=== PATIENT | female | born 2000 | race Two or more races ===

== ENCOUNTER 2020-10-12 16:45 | Outpatient (REF) | payer MEDICAID, SELFPAY | END 2020-10-12 16:46 | disposition home or self-care (01) | LOC: HO.LAB 16:45 | PROVIDERS: Visit Provider Internal Medicine | DX: Z20.828 Contact with and (suspected) exposure to other viral communicable diseases (principal) | CPT/HCPCS: C9803; U0003 ==

== ENCOUNTER 2020-10-22 11:48 | Outpatient (REF) | payer MEDICAID, SELFPAY | END 2020-10-22 11:49 | disposition home or self-care (01) | LOC: HO.LAB 11:48 | PROVIDERS: PCP Pediatrics; Visit Provider Internal Medicine | DX: Z20.828 Contact with and (suspected) exposure to other viral communicable diseases (principal) | CPT/HCPCS: C9803; U0003 ==

== ENCOUNTER 2020-11-23 09:32 | Outpatient (REF) | payer MEDICAID, SELFPAY ==
[2020-11-23 11:00] LABS: HBS Num1 0.11 mIU/mL (0-7.99); ~Hepatitis B Surface Antibody NONREACTIVE (Nonreactive)
== END 2020-11-23 09:33 | disposition home or self-care (01) ==
LOC: HO.LAB 09:32
PROVIDERS: PCP Internal Medicine; Visit Provider Internal Medicine
DX: Z11.59 Encounter for screening for other viral diseases (principal)
CPT/HCPCS: 36415; 86706

== ENCOUNTER 2021-03-14 11:36 | Outpatient (REF) | payer MEDICAID, SELFPAY ==
--- NOTE | ~2021-03-14 | XR_ITS ---
EXAMINATION: XR CERVICAL SPINE XR THORACIC SPINE XR LUMBAR SPINE CLINICAL INFORMATION: Scoliosis. COMPARISON: None. TECHNIQUE: AP, lateral, open-mouth, bilateral oblique views of the cervical spine. AP, lateral, and swimmer's views of the thoracic spine. AP, lateral, coned down, and bilateral oblique views of the lumbar spine. FINDINGS: Cervical Spine: Normal vertebral body alignment. The cervical lordosis is maintained. Normal atlantoaxial alignment. No acute fracture or subluxation. No loss of vertebral body or intervertebral disc height. No lytic or blastic osseous lesion. Unremarkable prevertebral soft tissues. Thoracic Spine: Dextrocurvature of the thoracic spine centered at the T5 vertebral body and measuring up to 26 degrees. The thoracic kyphosis is maintained. No acute fracture or subluxation. No loss of vertebral body or intervertebral disc height. No lytic or blastic osseous lesion. The visualized lungs are clear. Lumbar Spine: The lumbar lordosis is maintained. No acute fracture or subluxation. No loss of vertebral body or intervertebral disc height. No lytic or blastic osseous lesion. No abnormal soft tissue calcification. XR/XR cervical spine 4V IMPRESSION: CERVICAL SPINE: Unremarkable examination. THORACIC SPINE: Dextrocurvature of the thoracic spine centered at the T5 vertebral body measuring up to 26 degrees. LUMBAR SPINE: Unremarkable examination.
--- NOTE | ~2021-03-14 | XR_ITS ---
EXAMINATION: XR CERVICAL SPINE XR THORACIC SPINE XR LUMBAR SPINE CLINICAL INFORMATION: Scoliosis. COMPARISON: None. TECHNIQUE: AP, lateral, open-mouth, bilateral oblique views of the cervical spine. AP, lateral, and swimmer's views of the thoracic spine. AP, lateral, coned down, and bilateral oblique views of the lumbar spine. FINDINGS: Cervical Spine: Normal vertebral body alignment. The cervical lordosis is maintained. Normal atlantoaxial alignment. No acute fracture or subluxation. No loss of vertebral body or intervertebral disc height. No lytic or blastic osseous lesion. Unremarkable prevertebral soft tissues. Thoracic Spine: Dextrocurvature of the thoracic spine centered at the T5 vertebral body and measuring up to 26 degrees. The thoracic kyphosis is maintained. No acute fracture or subluxation. No loss of vertebral body or intervertebral disc height. No lytic or blastic osseous lesion. The visualized lungs are clear. Lumbar Spine: The lumbar lordosis is maintained. No acute fracture or subluxation. No loss of vertebral body or intervertebral disc height. No lytic or blastic osseous lesion. No abnormal soft tissue calcification. XR/XR thoracic spine 3V IMPRESSION: CERVICAL SPINE: Unremarkable examination. THORACIC SPINE: Dextrocurvature of the thoracic spine centered at the T5 vertebral body measuring up to 26 degrees. LUMBAR SPINE: Unremarkable examination.
--- NOTE | ~2021-03-14 | XR_ITS ---
EXAMINATION: XR CERVICAL SPINE XR THORACIC SPINE XR LUMBAR SPINE CLINICAL INFORMATION: Scoliosis. COMPARISON: None. TECHNIQUE: AP, lateral, open-mouth, bilateral oblique views of the cervical spine. AP, lateral, and swimmer's views of the thoracic spine. AP, lateral, coned down, and bilateral oblique views of the lumbar spine. FINDINGS: Cervical Spine: Normal vertebral body alignment. The cervical lordosis is maintained. Normal atlantoaxial alignment. No acute fracture or subluxation. No loss of vertebral body or intervertebral disc height. No lytic or blastic osseous lesion. Unremarkable prevertebral soft tissues. Thoracic Spine: Dextrocurvature of the thoracic spine centered at the T5 vertebral body and measuring up to 26 degrees. The thoracic kyphosis is maintained. No acute fracture or subluxation. No loss of vertebral body or intervertebral disc height. No lytic or blastic osseous lesion. The visualized lungs are clear. Lumbar Spine: The lumbar lordosis is maintained. No acute fracture or subluxation. No loss of vertebral body or intervertebral disc height. No lytic or blastic osseous lesion. No abnormal soft tissue calcification. XR/XR lumbar spine 4V min IMPRESSION: CERVICAL SPINE: Unremarkable examination. THORACIC SPINE: Dextrocurvature of the thoracic spine centered at the T5 vertebral body measuring up to 26 degrees. LUMBAR SPINE: Unremarkable examination.
== END 2021-03-14 11:37 | disposition home or self-care (01) ==
LOC: HO.XRAY 11:36
PROVIDERS: PCP Internal Medicine; Visit Provider Internal Medicine
DX: M41.9 Scoliosis, unspecified (principal)
CPT/HCPCS: 72050; 72072; 72110

== ENCOUNTER 2021-11-12 08:58 | Outpatient (REF) | payer MEDICAID, SELFPAY ==
[2021-11-12 09:20] LABS: COVID-19 Test Positive (Negative)
== END 2021-11-12 08:59 | disposition home or self-care (01) ==
LOC: HO.LAB 08:58
PROVIDERS: Visit Provider Internal Medicine
DX: Z20.822 Contact with and (suspected) exposure to COVID-19 (principal)
CPT/HCPCS: 87635; C9803

== ENCOUNTER 2021-11-26 15:41 | Outpatient (REF) | payer MEDICAID, SELFPAY ==
[2021-11-26 16:00] LABS: Binax Internal Control QC Valid; Binax Now Covid-19 Ag Negative (Negative)
== END 2021-11-26 15:42 | disposition home or self-care (01) ==
LOC: HO.LAB 15:41
PROVIDERS: PCP Internal Medicine; Visit Provider Internal Medicine
DX: Z13.89 Encounter for screening for other disorder (principal)

== ENCOUNTER 2022-10-11 05:28 | Emergency (ER) | payer MEDICAID, SELFPAY ==
[2022-10-11 05:34] VITALS: BP 120/77; PULSE 92; RESP 16; TEMP 37; O2SAT 96; BMI 26.7
--- NOTE | 2022-10-11 05:36 | ED_ITS ---
HPI - General Adult General Chief complaint: Upper Respiratory Symptoms Stated complaint: flu like symptoms Time Seen by Provider: 10/11/22 05:35 Source: patient Mode of arrival: ambulatory Limitations: no limitations History of Present Illness HPI narrative: Patient comes to emergency room complaining of 4 days of sore throat, cough. Patient states that the reason that she is here is that she would like to be t ested for COVID and influenza, as she would like to return to work. Patient states that overall over the last couple of days she has been feeling much better. Patient denies chest pain or shortness of breath, sore throat is improving. Related Data Allergies Allergy/AdvReac Type Severity Reaction Status Date / Time No Known Allergies Allergy Unverified 07/12/20 17:24 Review of Systems Review of Systems: Constitutional : No Weight loss, complaining of subjective fever and chills, fatigue and generalized malaise ENT/Mouth : No Hearing loss, No Ear Pain, No Nasal Congestion, No Sinus Pain, No Hoarseness, complaining of mild sore throat, No Rhinorrhea, No Swallowing Difficulty Eyes: No Eye Pain, No Swelling, No Redness, No Foreign Body, No Discharge, No Vision Changes Cardiovascular : No Chest Pain, No SOB, No Dyspnea on Exertion, No Orthopnea, No Edema, No Palpitations Respiratory : No Cough, No Sputum, No Wheezing, No Smoke Exposure, No Dyspnea Gastrointestinal : No Nausea, No Vomiting, No Diarrhea, No Constipation, No abdominal Pain, No Hematochezia, No Melena Genitourinary : no irregular bleeding, No Dysuria, No Urinary Frequency, No Hematuria, No Urinary Incontinence, No Urgency, No Flank Pain, No Urinary Flow Changes, No Hesitancy Musculoskeletal : No joint pain, No Myalgias, No Joint Swelling Skin : No Skin Lesions, No rash Neuro : No Weakness, No Numbness, No Paresthesias, No Loss of Consciousness, No Dizziness, No Headache Psych : No Anxiety/Panic, No Depression, No SI/HI/AH/VH, No Social Issues, Heme/Lymph: No Bruising, No Bleeding,No Lymphadenopathy Endocrine : No Polyuria, No Polydipsia, No Temperature Intolerance PMFSH Social History Social History Advance Directives: No Advance Directives Information Provided: Yes Physical Exam ED Vital Signs: Vital Signs - 24 hr 10/11/22 05:34 Temperature 98.6 F Pulse Rate 92 Respiratory Rate 16 Blood Pressure 120/77 Pulse Oximetry 96 Oxygen Delivery Method Room Air BMI result Body Mass Index 26.7 Const Other: Appearance: Alert. Oriented X3. No acute distress. Eyes: Pupils equal, round and reactive to light. ENT: Pharynx normal. Neck: Normal inspection. Neck supple. No lymph nodes noted. No crepitus CVS: Normal heart rate and rhythm. Pulses normal. Normal S1 and S2 Respiratory: No respiratory distress. Breath sounds normal. No Wheezing. No rales Abdomen: Soft and nontender. No rigidity. No distention. Skin: Skin warm and dry. Normal skin color. Normal skin turgor. Extremities: No lower extremity edema. No Lacerations. No Rash Neuro: Oriented X 3. No motor deficit. No sensory deficit. Moving all extremities. No slurred speech. CN 2 through 12 grossly intact Psych: calm, cooperative, normal affect Course Course Course Narrative: Patient's serology test pending Patient tested positive for influenza. Patient is 1 more day to complete 5 days of symptoms. Patient overall feels well Medical Decision Making Differential Diagnosis Differential Diagnoses: The differential diagnosis associated with the presentation includes (Influenza, COVID, viral illness) Lab Data MDM Lab Attestation statement: I reviewed the patient's lab results. Labs: Lab Results 10/11/22 10/11/22 Range/Units 05:42 05:42 COVID-19 ([facility]) Negative (Negative) COVID-19 Clin Com See Note Influenza Type A ([facility]) Positive A (Negative) Influenza Type B ([facility]) Negative (Negative) Influenza A & B Note See Note Prescription Management I considered prescription management with: Other (Tamiflu was considered. However, patient has been symptomatic for plus days, unlikely to have any b enefit from it. Patient agrees with plan) Discharge Plan Discharge Clinical Impression: Influenza A Patient Disposition: Home, Self-Care Instructions: Influenza (ED) Additional Instructions: Please follow-up with your primary care physician tomorrow. If you have any worsening or new symptoms, please return to the emergency room or call 911. If you feel well enough, he may return to work tomorrow. Please use your mask at all times Stand Alone Forms: Work/School Release
[2022-10-11 06:04] LABS: COVID-19 Test Negative (Negative); IDNOW Serial# 16C4AD1C; IDNOW Serial# BCCEAD1C; Influenza A Positive (Negative); Influenza B2 Negative (Negative)
== END 2022-10-11 06:22 | disposition home or self-care (01) ==
PROVIDERS: Emergency Provider Emergency Medicine; PCP Internal Medicine
DX: J11.1 Influenza due to unidentified influenza virus with other respiratory manifestations (principal); Z20.822 Contact with and (suspected) exposure to COVID-19
CPT/HCPCS: 87502; 87635; 99282; 99283

== ENCOUNTER 2023-12-28 10:28 | Outpatient (REF) | payer OTHER, SELFPAY ==
[2023-12-28 11:32] LABS: MANUAL DIFF FLAG NO
[2023-12-28 11:47] LABS: Basophils Percent Auto 0.7 % (0-2); Eosinophils Absolute Auto 0.1 X10*3/uL (0.0-0.4); Eosinophils Percent Auto 1.5 % (0-4); Hematocrit 40.1 % (37.0-47.0); Hemoglobin 12.2 g/dl (12.0-16.0); Imm Gran Abs Auto 0.01 X10*3/uL (0.00-0.03); Imm Gran Pct Auto 0.2 % (0.0-0.4); Lymphocytes Absolute Auto 1.6 X10*3/uL (1.2-4.9); Lymphocytes Percent Auto 26.6 % (20-40); Mean Corpuscular HGB Conc 30.4 g/dl (31.0-35.0); Mean Corpuscular Hemoglobin 21.9 pg (27.0-33.0); Mean Platelet Volume 10.1 fL (9.4-12.3); Monocytes Absolute Auto 0.4 X10*3/uL (0.1-1.2); Monocytes Percent Auto 6.5 % (2-11); Neutrophils Absolute Auto 3.8 x10*3/uL (2.0-8.3); Neutrophils Percent Auto 64.5 % (45-73); Platelet Count 394 X10*3/uL (160-400); Red Blood Count 5.57 X10*6/uL (4.20-5.50); Red Cell Distribution Width 13.8 % (11.0-16.0); White Blood Count 5.8 X10*3/uL (4.8-10.8)
[2023-12-28 14:05] LABS: Alanine Aminotransferase 12 U/L (0-31); Albumin Level 4.8 g/dL (3.5-5.0); Alkaline Phosphatase 81 U/L (39-117); Anion Gap 12 (12-20); Aspartate Amino Transferase 17 U/L (5-31); Bilirubin Total 0.8 mg/dL (0.0-1.0); Blood Urea Nitrogen 11 mg/dL (9-16); Carbon Dioxide 29 mmol/L (22-29); Chloride 105 mmol/L (96-108); Estimated Glomerular Filt Rate > 60; Glucose Random 88 mg/dL (60-115); Potassium 4.9 mmol/L (3.3-5.1); Sodium 141 mmol/L (135-145); Total Protein 8.3 g/dL (6.5-8.0)
[2023-12-28 14:11] LABS: Ferritin 26 ng/mL (10-122)
[2023-12-29 07:58] LABS: HIV AB/AG Nonreactive (Nonreactive); HIV Num 1 0.06 S/CO (0.00-0.99)
[2023-12-29 08:15] LABS: Syphilis Screen Nonreactive (Nonreactive)
[2024-01-01 08:22] LABS: Hematocrit 39.2 % (35.0-45.0); MCH 21.9 pg (27.0-33.0); MCV 71.7 fL (80.0-100.0); RBC 5.47 Million/uL (3.80-5.10); RDW 13.8 % (11.0-15.0)
== END 2023-12-28 10:29 | disposition home or self-care (01) ==
LOC: HO.HHCL 10:28
PROVIDERS: Visit Provider Internal Medicine
DX: Z00.00 Encounter for general adult medical examination without abnormal findings (principal); Z11.4 Encounter for screening for human immunodeficiency virus [HIV]; D56.3 Thalassemia minor; F43.21 Adjustment disorder with depressed mood
CPT/HCPCS: 36415; 80053; 82728; 83020; 85014; 85018; 85025; 85041; 86780; 87389